=== PATIENT | female | born 2000 | race Caucasian/White ===

== ENCOUNTER 2019-08-15 16:31 | Outpatient (CLI) | payer OTHER, SELFPAY ==
[2019-08-15 17:07] VITALS: BP 133/71; PULSE 98; RESP 20; TEMP 36.1; O2SAT 98; BMI 37.9
[2019-08-15 17:21] LABS: Microscopic, Urine URINE MICROSCOPIC (MICROSCOPIC)
[2019-08-15 17:22] LABS: Appearance,Urine SL CLOUDY (Clear); Bilirubin,Urine Negative (Negative); Blood, Urine Negative (Negative); Color,Urine YELLOW (Yellow); Glucose,Urine (UA) Negative (Negative); Ketones,Urine Negative (Negative); Leukocyte Esterase,Urine 1+ (Negative); Nitrate,Urine Negative (Negative); Protein,Urine Negative (Negative); Specific Gravity, Urine 1.015 (1.005-1.030); Urobilinogen,Urine 0.2 EU/dl (0.2)
[2019-08-15 17:36] LABS: Barbiturates Screen,Urine Negative ng/ml (<200); Benzodiazepines Screen,Urine Negative ng/ml (<200)
[2019-08-15 17:37] LABS: Amphetamine/Metha Screen,Urine Negative ng/ml (<1000)
[2019-08-15 17:38] LABS: Cannabinoid Screen,Urine Negative ng/ml (<50); Methadone Screen,Urine Negative ng/ml (<300)
[2019-08-15 17:39] LABS: Cocaine Screen,Urine Negative ng/ml (<300)
[2019-08-15 17:40] LABS: Opiate Screen,Urine Negative ng/ml (<300)
[2019-08-15 17:41] LABS: Phencyclidine Screen,Urine Negative ng/ml (<25)
[2019-08-15 17:42] LABS: Bacteria,Urine 3+ /lpf
== END 2019-08-15 17:58 | disposition home or self-care (01) ==
LOC: OBOUT 16:34 → OB 16:35
PROVIDERS: Visit Provider Nurse Practitioner Obstetrics & Gynecology
DX: O26.899 Other specified pregnancy related conditions, unspecified trimester (principal); Z3A.22 22 weeks gestation of pregnancy
CPT/HCPCS: 80305; 81001; 87086; 87088; 87186; G0463